=== PATIENT | female | born 1960 | race Caucasian/White ===

== ENCOUNTER 2016-09-29 20:48 | Emergency (ER) | payer OTHER ==
[~2016-09-29] VITALS: Ht 162.6 cm; Wt 97.5 kg
[~2016-09-29 20:48] MED LIST: BACTRIM DS TAB1 EACH PO; BLM PO; MACROBID 100 M100 MG PO; PYRIDIUM200 M1 PO; ROBITUSSIN W/CO10 ML PO
[2016-09-29 21:02] VITALS: BP 143/83
--- NOTE | 2016-09-29 21:27 | ED GI/GU/ABDOMINAL COMPLAINT ---
History of Present Illness General Chief Complaint: General Adult Stated Complaint: UTI PER PT Source: patient, old records Exam Limitations: no limitations Vital Signs & Intake/Output Vital Signs & Intake/Output Vital Signs Date Time Temp Pulse Resp B/P Pulse O2 O2 Flow FiO2 Ox Delivery Rate 09/29 2102 98.0 78 20 143/83 96 Room Air Allergies Coded Allergies: hydrocodone (From VICODIN) (Intermediate, NAUSEA 12/30/15) tramadol (Intermediate, ANXIETY 12/30/15) ciprofloxacin (UNKNOWN 12/30/15) codeine (UNKNOWN 12/30/15) diazepam (UNKNOWN 12/30/15) gentamicin (UNKNOWN 12/30/15) Uncoded Allergies: CONSTRAST DYE (06/06/13) Reconcile Medications LIDO/MAAL/ZE (Magic Mouthwash) (Lido-Visc2% 30ML/[id number],MAALOX 120ml) 270 ML MARIE 10 ML PO TID PRN Mouth Pain EQUAL PARTS Nitrofurantoin Monohyd/M-Cryst (Macrobid 100 MG Capsule) 100 MG CAPSULE 1 CAP PO BID uti Phenazopyridine HCl (Pyridium) 200 MG TABLET 1 TAB PO TID PRN DYSURIA Phenazopyridine HCl (Pyridium) 200 MG TABLET 1 TAB PO TID uti Phenazopyridine HCl (Pyridium) 200 MG TABLET 1 TAB PO TID UTI Robitussin AC (Guaifenesin-Codeine Syrup) 10 ML UDC 10 ML PO Q6HR PRN COUGH Sulfamethoxazole/Trimethoprim (Bactrim Ds Tablet) 800 MG-160 MG TABLET 1 TAB PO BID UTI Sulfamethoxazole/Trimethoprim (Bactrim Ds Tablet) 1 EACH TABLET 1 TAB PO BID UTI Triage Note: STATES HAS A UTI Triage Nurses Notes Reviewed? yes ? N Is pt currently ? No Onset: Abrupt Duration: day(s): (1) Timing: multiple episodes today Quality/Severity: moderate Location: suprapubic Radiation: no radiation Activities at Onset: self catheterizes Prior Abdominal Problems: none No Modifying Factors: none Associated Symptoms: dysuria, urinary frequency HPI: 56 year old female with urgency x 1 day. The fever and some chills. No nausea or vomiting. Denies any abdominal pain. She just came off a course of Augmentin 4 days ago. Patient self catheterizes for history of urinary problems. She is pending bladder Botox surgery. She called her doctor today but only started having symptoms after the phone call. She states she was given Augmentin by an urgent care clinic. Unsure if urine culture was done. Past History Travel History Traveled to [place] past 21 day No Medical History Any Pertinent Medical History? see below for history Neurological: NONE EENT: NONE Cardiovascular: hypertension Respiratory: obstructive sleep apnea, USE CPAP Gastrointestinal: colitis, irritable bowel syndrome Hepatic: NONE Renal: FREQUENT UTI'S OVERACTIVE BLADDER SELF CATHETERIZES BID R/T HX URINARY RETENTION Musculoskeletal: disk herniation, sciatica Psychiatric: anxiety, bipolar disease, depression, PTSD Endocrine: hypothyroidism Blood Disorders: NONE Cancer(s): NONE RIP/MOULD OPERATOR/Reproductive: NONE Tetanus Vaccine: 06/01/13 Surgical History Surgical History: non-contributory Psychosocial History What is your primary language Vincentian Family History Hx Contributory? No Review of Systems Review of Systems Constitutional: Reports: chills, fever (SUBJECTIVE). Denies: malaise, weakness. EENTM: Reports: no symptoms. Respiratory: Denies: cough, short of breath. Cardiovascular: Denies: chest pain, palpitations. GI: Reports: abdominal pain. Denies: nausea, vomiting. Genitourinary: Reports: dysuria, frequency. Musculoskeletal: Reports: no symptoms. Skin: Reports: no symptoms. Neurological/Psychological: Reports: no symptoms. Hematologic/Endocrine: Reports: polyuria. Denies: bruising, bleeding, polydipsia. Immunologic/Allergic: Denies: splenectomy. All Other Systems: Reviewed and Negative Physical Exam Physical Exam General Appearance: well developed/nourished, alert, awake, mild distress, obese Head: atraumatic, normal appearance Eyes: Bilateral: normal appearance, PERRL, EOMI. Ears, Nose, Throat, Mouth: hearing grossly normal, moist mucous membrane Neck: normal inspection, supple, full range of motion Respiratory: normal breath sounds, chest non-tender, no respiratory distress Cardiovascular: regular rate/rhythm Peripheral Pulses: 2+ radial (R), 2+ radial (L) Gastrointestinal: normal bowel sounds, soft, non-tender Back: normal inspection, normal range of motion Extremities: normal range of motion Core Measures ACS in differential dx? No Severe Sepsis Present: No Septic Shock Present: No Progress Differential Diagnosis: UTI/pyelo Plan of Care: Orders Procedure Date/time Status CULTURE,URINE 09/29 2058 Active URINALYSIS 09/29 2058 Complete Current Medications Sig/Porter Start time Last Medication Dose Stop Time Status Admin Phenazopyridine HCl 200 MG ONCE ONE 09/29 2144 AC (Pyridium) 09/29 2145 Trimethoprim/ 1 TAB ONCE ONE 09/29 2144 AC Sulfamethoxazole 09/29 2145 (Bactrim DS) Laboratory Tests 09/29/16 2100: Urinalysis LIGHT H, Urine Color STRAW, Urine Clarity CLDY H, Urine pH 7.0, Ur Specific Waterproof 1.020, Urine Protein >=300 H, Urine Ketones NEG, Urine Nitrite NEG, Urine Bilirubin NEG, Urine Urobilinogen 0.2, Ur Leukocyte Esterase LARGE H , Ur Microscopic SEDIMENT EXAMINED, Urine RBC 3-5, Urine WBC > 75 H, Ur Epithelial Cells MOD H, Urine Bacteria MANY H, Urine Mucus FEW, Urine Hemoglobin MOD H, Urine Glucose NEG Microbiology 09/29 2099 URINE ROUT: Urine Culture - RECD Initial ED EKG: none Departure Departure Time of Disposition: 2137 Disposition: HOME OR SELF CARE Condition: Stable Clinical Impression Primary Impression: UTI (urinary tract infection) Referrals: AURELIA ZAVALA,RADHA (PCP/Family) Additional Instructions: The Bactrim and Pyridium as directed and please follow-up with your specialist. Return to the ER for any vomiting, high fevers, or worsening symptoms. Departure Forms: Customer Survey General Discharge Information Prescriptions: Current Visit Scripts Sulfamethoxazole/Trimethoprim (Bactrim Ds Tablet) 1 TAB PO BID #19 TAB Phenazopyridine HCl (Pyridium) 1 TAB PO TID PRN DYSURIA #6 TAB
[2016-09-29] MEDS ORDERED: BACTRIM DS TAB1 EACH PO (21:39)
[2016-09-29] MEDS ORDERED: PYRIDIUM200 M1 PO (21:39)
== END 2016-09-29 21:58 ==
LOC: ERH 20:48
DX: N39.0 Urinary tract infection, site not specified (principal)
CPT/HCPCS: 81001; 87086